=== PATIENT | female | born 1940 | race Caucasian/White ===

== ENCOUNTER 2019-05-17 10:51 | Outpatient (CLI) | payer MEDICARE, BC ==
[2019-05-17 12:26] LABS: BASOPHILS # (AUTO) 0.07 x10^3/uL (0-0.1); BASOPHILS % (AUTO) 1 % (0-1); EOSINOPHILS # (AUTO) 0.07 x10^3/uL (0-0.4); EOSINOPHILS % (AUTO) 1 % (1-7); LYMPHOCYTES # (AUTO) 3.12 x10^3/uL (1-3.4); LYMPHOCYTES % (AUTO) 26 % (22-44); MD NO; MEAN CORPUSCULAR HEMOGLOBIN 30.4 pg (27.0-34.8); MEAN CORPUSCULAR HGB CONC 33.3 g/dL (32.4-35.8); MEAN CORPUSCULAR VOLUME 91.3 fL (80-100); MEAN PLATELET VOLUME 7.4 fL (7.4-10.4); MONOCYTES # (AUTO) 0.51 x10^3/uL (0.2-0.8); MONOCYTES % (AUTO) 4 % (2-9); NEUTROPHILS # (AUTO) 8.44 x10^3/uL (1.8-6.8); NEUTROPHILS % (AUTO) 69 % (42-75); PLATELET COUNT 342 x10^3/uL (130-400); RED BLOOD COUNT 5.31 x10^6/uL (3.82-5.3); RED CELL DISTRIBUTION WIDTH 14.8 % (9.6-15.2)
[2019-05-17 12:36] LABS: INTERNATIONAL NORMALIZED RATIO 0.95 (0.93-1.1)
[2019-05-17 12:37] LABS: ANION GAP 3 mmol/L (5-15); CHLORIDE 107 mmol/L (98-107); CREATININE 0.85 mg/dL (0.55-1.02)
[2019-05-17 12:58] LABS: HEMOGLOBIN A1C 5.9 % (4.2-6.3)
[2019-05-20] MEDS ORDERED: MULT1TAB60 PO (09:43)
[2019-05-20] MEDS ORDERED: LEVO88TA4 PO (09:43)
[2019-05-20] MEDS ORDERED: CALC600T4 PO (09:43)
[2019-05-20] MEDS ORDERED: ALEN70TA6 PO (09:43)
[2019-05-20] MEDS ORDERED: FENTANYL PF 250 MCG/5ML ONE (18:39)
[2019-05-20] MEDS ORDERED: DEXAMETHASONE 4 MG/ML, 1ML ONE (20:17)
[2019-05-20] MEDS ORDERED: CEFAZOLIN 1,000 MG ONE (20:17)
[2019-05-20] MEDS ORDERED: PROPOFOL 10 MG/ML, 20ML ONE (20:17)
[2019-05-20] MEDS ORDERED: ONDANSETRON 2MG/ML, 2ML ONE (20:17)
== END 2019-05-17 23:59 | disposition home or self-care (01) ==
LOC: STAR 10:51
PROVIDERS: ATTEND Orthopaedic Surgery
DX: Z01.818 Encounter for other preprocedural examination (principal); M17.12 Unilateral primary osteoarthritis, left knee
CPT/HCPCS: 36415; 80048; 83036; 85025; 85610; 85730; 87081; 87806; 93005; G0475

== ENCOUNTER 2019-05-23 07:22 | Observation (INO) | payer MEDICARE, BC ==
[~2019-05-23] VITALS: Ht 157.5 cm; Wt 72.0 kg
[~2019-05-23 07:22] MED LIST: ALEN70TA6 PO; CALC600T4 PO; EPINEPHRINE 1 MG/ML, 1ML ONE; KETOROLAC 60 MG/2 ML ONE; LEVO88TA4 PO; MULT1TAB60 PO; ROPIvacaine/PF 0.2%, 20 ML ONE; SODIUM CHLORIDE 0.9% 50 ML ONE; TRANEXAMIC ACID 100 MG/ML, 10ML ONE
[2019-05-23] MEDS ORDERED: LACTATED RINGERS 1,000 ML IV SCH (08:46)
[2019-05-23] MEDS ORDERED: LIDOCAINE-MPF 1%, 2ML INFIL ONE (09:00)
[2019-05-23] MEDS ORDERED: ACETAMINOPHEN 500 MG TABLET PO ONE (09:00)
[2019-05-23] MEDS ORDERED: GABAPENTIN 300 MG CAPSULE PO ONE (09:00)
[2019-05-23] MEDS ORDERED: MIDAZOLAM 1 MG/ML, 2ML ONE (09:32)
[2019-05-23] MEDS ORDERED: FENTANYL PF 250 MCG/5ML ONE (09:32)
[2019-05-23] MEDS ORDERED: DIPHENHYDRAMINE 50 MG/ML, 1ML IVPush PRN (10:30)
[2019-05-23] MEDS ORDERED: ACETAMINOPHEN 650 MG/20.3 ML UDC PO PRN (10:30)
[2019-05-23] MEDS ORDERED: TRANEXAMIC ACID 1,000 MG in SODIUM CHLORIDE 0.9% 100 ML IVPB ONE (10:30)
[2019-05-23] MEDS ORDERED: ONDANSETRON 2MG/ML, 2ML IV PRN ×2 (10:30→11:00)
[2019-05-23] MEDS ORDERED: OXYcodone IR 5MG TABLET PO PRN (10:30)
[2019-05-23] MEDS ORDERED: ONDANSETRON 4 MG TABLET PO PRN (10:30)
[2019-05-23] MEDS ORDERED: SENNA/DOCUSATE TABLET PO PRN (10:30)
[2019-05-23] MEDS ORDERED: POLYETHYLENE GLYCOL 17 GM PACKET PO PRN (10:30)
[2019-05-23] MEDS ORDERED: ALUMINUM/MAG/SIMETHICONE 30 ML UDC PO PRN (10:30)
[2019-05-23] MEDS ORDERED: PSYLLIUM PACKET PO PRN (10:30)
[2019-05-23] MEDS: KETOROLAC 30 MG/1 ML IV SCH ×2 (10:30→18:21)
[2019-05-23] MEDS ORDERED: HYDROmorphone 2 MG/ML, 1ML IVPush PRN ×2 (10:30→11:00)
[2019-05-23] MEDS ORDERED: MAGNESIUM HYDROXIDE 8%, 30ML UDC PO PRN (10:30)
[2019-05-23] MEDS ORDERED: DIPHENHYDRAMINE 50 MG CAPSULE PO PRN (10:30)
[2019-05-23] MEDS ORDERED: LABETALOL 5MG/ML, 20ML IV PRN (11:00)
[2019-05-23] MEDS ORDERED: FENTANYL PF 100 MCG/2ML IV PRN (11:00)
[2019-05-23] MEDS ORDERED: PROMETHAZINE 25 MG/ML, 1ML IV PRN (11:00)
[2019-05-23] MEDS ORDERED: OXYcodone 5 MG/5 ML ORAL.SOL UDC PO PRN (11:00)
[2019-05-23] MEDS ORDERED: DIAZEPAM 5 MG/ML, 2ML IVPush PRN (11:00)
[2019-05-23] MEDS ORDERED: MIDAZOLAM 1 MG/ML, 2ML IV PRN (11:00)
[2019-05-23] MEDS ORDERED: hydrALAzine 20 MG/ML, 1ML IV PRN (11:00)
[2019-05-23] MEDS ORDERED: ALBUTEROL/IPRATROPIUM 2.5MG/0.5MG, 3 ML NPPB PRN (11:00)
[2019-05-23] MEDS ORDERED: MEPERIDINE/PF 25MG/0.5ML IVPush PRN (11:00)
[2019-05-23] MEDS ORDERED: ONDANSETRON 2MG/ML, 2ML ONE (11:04)
[2019-05-23] MEDS ORDERED: BUPIVACAINE/PF 0.25% ONE (11:04)
[2019-05-23] MEDS ORDERED: CEFAZOLIN 1,000 MG ONE (11:04)
[2019-05-23] MEDS ORDERED: PROPOFOL 10 MG/ML, 20ML ONE (11:04)
[2019-05-23] MEDS ORDERED: DEXAMETHASONE 4 MG/ML, 1ML ONE (11:04)
[2019-05-23] MEDS ORDERED: LIDOCAINE-MPF 2% ,5ML ONE (11:04)
[2019-05-23] MEDS ORDERED: OXYcodone 5 MG/5 ML ORAL.SOL UDC ONE (12:00)
[2019-05-23] MEDS ORDERED: FENTANYL PF 100 MCG/2ML ONE (12:00)
[2019-05-23] MEDS ORDERED: CEFAZOLIN PMX 1GM/50ML 50 ML IVPB SCH (14:00)
[2019-05-23] MEDS: D5%-0.45NACL+KCL 20MEQ 1,000 ML IV SCH (17:01)
[2019-05-23] MEDS: ASPIRIN 81 MG TABLET EC PO SCH ×2 (18:21→21:37)
[2019-05-23] MEDS: CEFAZOLIN PMX 1GM/50ML 50 ML IVPB SCH (18:22)
[2019-05-23 19:36] VITALS: BP 113/55
[2019-05-23] MEDS ORDERED: ASPIRIN 81 MG TABLET EC PO SCH (21:00)
[2019-05-23] MEDS: DOCUSATE 100 MG CAPSULE PO SCH (21:38)
[2019-05-23 23:31] VITALS: BP 106/54
[2019-05-24] MEDS: KETOROLAC 30 MG/1 ML IV SCH (02:18)
[2019-05-24] MEDS: CEFAZOLIN PMX 1GM/50ML 50 ML IVPB SCH (02:18)
[2019-05-24] MEDS: D5%-0.45NACL+KCL 20MEQ 1,000 ML IV SCH (04:00)
[2019-05-24 04:02] VITALS: BP 100/52
[2019-05-24] MEDS ORDERED: LEVOTHYROXINE 88 MCG TABLET PO SCH (06:00)
[2019-05-24] MEDS ORDERED: DEXAMETHASONE 4 MG/ML, 1ML IVPush SCH (06:00)
[2019-05-24 07:05] VITALS: BP 106/61
[2019-05-24] MEDS ORDERED: TAMSULOSIN 0.4 MG CAP.ER.24H PO SCH (09:00)
[2019-05-24] MEDS: ASPIRIN 81 MG TABLET EC PO SCH (10:03)
[2019-05-24] MEDS: DOCUSATE 100 MG CAPSULE PO SCH (10:03)
[2019-05-24 12:49] VITALS: BP 113/69
== END 2019-05-24 13:30 | disposition home or self-care (01) ==
LOC: OUT 07:22 → ORIP 10:12 → 4NOR 13:20 → DCLOUNGE 05-24 13:13
PROVIDERS: ADMIT Orthopaedic Surgery; ATTEND Orthopaedic Surgery
DX: M17.12 Unilateral primary osteoarthritis, left knee (principal); Z79.82 Long term (current) use of aspirin; Z79.899 Other long term (current) drug therapy
CPT/HCPCS: 27447; 36415; 73560; 85014; 85018; 96365; 96366; 96375; 96376; 97110; 97161; 97165; C1713; C1776; G0378; J0171; J0690; J1100; J1885; J2250; J2405; J2704; J2795; J3010; J3480; J3490; J7120

== ENCOUNTER 2021-07-09 12:50 | Emergency (ER) | payer BC, OTHER ==
[~2021-07-09] VITALS: Ht 157.5 cm; Wt 79.0 kg
[~2021-07-09 12:50] MED LIST changes: -ALEN70TA6 PO; +ALEN70TA77 PO; -CALC600T4 PO; +CALC600T60 PO; -EPINEPHRINE 1 MG/ML, 1ML ONE; -KETOROLAC 60 MG/2 ML ONE; +MULT-449 PO; -MULT1TAB60 PO; -ROPIvacaine/PF 0.2%, 20 ML ONE; -SODIUM CHLORIDE 0.9% 50 ML ONE; -TRANEXAMIC ACID 100 MG/ML, 10ML ONE
--- NOTE | 2021-07-09 14:59 | NUR ---
ALEX NGUYEN AT BEDSIDE.
--- NOTE | 2021-07-09 15:10 | NUR ---
PT TO CT.
[2021-07-09 16:28] VITALS: BP 152/83
--- NOTE | 2021-07-09 17:16 | NUR ---
Patient given discharge instructions and they have confirmed that they understand the instructions. Patient ambulatory with steady gait.
== END 2021-07-09 17:18 | disposition home or self-care (01) ==
LOC: ED 16:30
DX: S62.317A Displaced fracture of base of fifth metacarpal bone, left hand, initial encounter for closed fracture (principal); S16.1XXA Strain of muscle, fascia and tendon at neck level, initial encounter; E78.00 Pure hypercholesterolemia, unspecified; E03.9 Hypothyroidism, unspecified; V43.51XA Car driver injured in collision with sport utility vehicle in traffic accident, initial encounter; Y93.89 Activity, other specified; Y92.410 Unspecified street and highway as the place of occurrence of the external cause; Y99.8 Other external cause status
CPT/HCPCS: 29125; 71046; 72125; 99284